=== PATIENT | male | born 1935 | race Caucasian/White ===

== ENCOUNTER 2017-01-11 10:48 | Emergency (ER) | payer MEDICARE ==
--- NOTE | 2017-01-11 12:43 | EDM.PDOC ---
ED HPI GENERAL MEDICAL PROBLEM - General Chief Complaint: Gastrointestinal Problem Stated Complaint: FEEDING TUBE CAME OUT Time Seen by Provider: 01/11/17 11:59 Source of Information: Reports: Patient, Family History Limitations: Reports: No Limitations - History of Present Illness INITIAL COMMENTS - FREE TEXT/NARRATIVE: This gentlemans feeding tube fell out last night. It had been functioning well before that but the balloon deflated. His wonders if maybe his abdomen might be a little bit puffy today.. Patient says he still feeling fine otherwise however - Related Data Allergies Allergy/AdvReac Type Severity Reaction Status Date / Time No Known Allergies Allergy Verified 01/11/17 11:33 Home Meds: Home Meds Calcitriol [Calcitriol] 01/11/17 [History] Finasteride [Finasteride] 5 mg PO DAILY 01/11/17 [History] Hydrocodone/Acetaminophen [Hydrocodon-Acetaminoph 7.5-325] 1 each PO Q4HR PRN [History] Sucralfate [Sucralfate] 1 dose PO QID 01/11/17 [History] Tamsulosin HCl [Tamsulosin HCl] 0.4 mg PO DAILY 01/11/17 [History] Thyroid,Pork [Fulda Thyroid] 15 mg PO DAILY 01/11/17 [History] Past Medical History HEENT History: Reports: Hard of Hearing, Impaired Vision, Other (See Below) Other HEENT History: tumor in throat had radiation Genitourinary History: Reports: Other (See Below) Other Genitourinary History: Metastatic prostrate cancer Musculoskeletal History: Reports: Arthritis Endocrine/Metabolic History: Reports: Hypothyroidism Hematologic History: Reports: Anemia, Blood Transfusion(s) Oncologic (Cancer) 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 radiation Social & Family History - Tobacco Use Smoking Status *Q: Never Smoker - Caffeine Use Caffeine Use: Reports: Coffee - Recreational Drug Use Recreational Drug Use: No ED ROS GENERAL - Review of Systems Review Of Systems: ROS reveals no pertinent complaints other than HPI. ED EXAM, GI/ABD - Physical Exam Exam: See Below Exam Limited By: No Limitations General Appearance: Alert, No Apparent Distress, Thin GI/Abdominal Exam: Other (Abdomen is soft nontender normal bowel sounds. It is not distended. There is a 20 Thai gastrostomy tube that has fallen out and the balloon is deflated. The bladder is not palpable) Extremities: No Pedal Edema Course - Vital Signs Last Recorded V/S: Last Vital Signs Temp 35.6 C 01/11/17 11:13 Pulse 77 01/11/17 11:13 Resp 18 01/11/17 11:13 BP 153/58 H 01/11/17 11:13 Pulse Ox 99 01/11/17 11:13 - Re-Assessments/Exams Free Text/Narrative Re-Assessment/Exam: 01/11/17 12:41 Initially a 20 Thai red rubber catheter was inserted after some lubricating jelly was applied. The catheter went in easily. Some air was injected which while also dictating confirmed at 7 the abdomen a few milliliters of saline were then injected that with well. I a 20 Thai gastrostomy tube was then inserted easily and 10 mL of saline were injected he tolerated that very well. Departure - Departure Time of Disposition: 12:42 Disposition: Home, Self-Care 01 Condition: Fair Clinical Impression: Dislodged gastrostomy tube - Discharge Information Referrals: Darryl Cerna MD [Primary Care Provider] - Additional Instructions: Continued tube feeding as before
== END 2017-01-11 12:59 | disposition home or self-care (01) ==
LOC: JP.ED 10:48
DX: T85.528A Displacement of other gastrointestinal prosthetic devices, implants and grafts, initial encounter (principal); E03.9 Hypothyroidism, unspecified; Z79.899 Other long term (current) drug therapy
CPT/HCPCS: 43760; 99283; 99283-25

== ENCOUNTER 2018-03-13 08:43 | Day surgery (SDC) | payer MEDICARE ==
[2018-03-13] MEDS ORDERED: Lidocaine 2% 20 ML MDV ONE (09:29)
[2018-03-13] MEDS ORDERED: Bupivacaine 0.5% 50 ML MDV ONE (09:29)
[2018-03-13] MEDS ORDERED: fentaNYL 100 MCG/2 ML SDV ONE (09:55)
[2018-03-13] MEDS ORDERED: Propofol 200 MG/20 ML SDV ONE (09:55)
[2018-03-13] MEDS ORDERED: Midazolam 1 MG/ML 2 ML SDV ONE (09:55)
--- NOTE | 2018-03-13 10:42 | MR ---
Foot wo Cont Rt CLINICAL HISTORY: Osteomyelitis TECHNIQUE: Sagittal, coronal, and axial images were obtained through the right foot without IV contrast. This exam was performed on a 1.5 Mary Ann superconducting magnet. FINDINGS: Patient's fifth toe and metatarsal have been amputated. There is moderate to the soft tissue edema in the forefoot most notable around the first through third metatarsals. This is consistent with cellulitis. No abscess is identified. There is poor definition of the first distal phalanx. This may be technical. The some loss of cortical bone cannot be excluded. The second through fourth phalanges are felt to be normal. The there is severe degenerative change in the first MTP joint. There is abnormal signal in the first metatarsal which was also seen on the prior study. The this is increased slightly and may represent metastatic disease patient has a history of prostate carcinoma IMPRESSION: Extensive cellulitis in the forefoot to more prominent in the surrounding the first through third metatarsal region. Poor definition of the first distal phalanx. The involvement with osteomyelitis cannot be excluded First metatarsal lesions have increased in size since the the prior study. This may represent bony metastasis of prostate carcinoma. Fifth toe and metatarsal amputation
[2018-03-13] MEDS ORDERED: Lactated Ringers 1,000 ML IV SCH (11:15)
[2018-03-13] MEDS ORDERED: ceFAZolin 2 GM in Premix Bag 1 BAG IV ONE (11:15)
--- NOTE | 2018-03-13 14:11 | OR ---
DATE OF PROCEDURE: 03/13/2018 BOX ATTACHER: None. PREOPERATIVE DIAGNOSES: Osteomyelitis distal phalanx, left great toe with ulceration, left great toe. POSTOPERATIVE DIAGNOSES: Osteomyelitis distal phalanx, left great toe with ulceration, left great toe. PROCEDURE: Partial amputation, left great toe with bone biopsy, left great toe. ANESTHESIA: Local with IV sedation. HEMOSTASIS: Obtained with an ankle tourniquet on left ankle at 250 mmHg. ESTIMATED BLOOD LOSS: 5 mL. MATERIALS: None. INJECTABLES: 20 mL of 1:1 mixture of lidocaine 2% plain and Marcaine 0.5% plain were used. PATHOLOGY: Aerobic and anaerobic cultures were taken and also bone culture was taken. CONDITION: Stable. INDICATIONS FOR SURGERY: Osteomyelitis, distal phalanx, left great toe with ulceration, left great toe. PROCEDURE IN DETAIL: The patient was brought to the operating room, placed on the operating table in supine position. Following IV sedation, anesthesia was obtained with a total of 20 mL of 1:1 mixture of lidocaine 2% plain, Marcaine 0.5% plain. The left foot was scrubbed, prepped, and draped in the usual aseptic manner raised to 60 degrees for hemostasis and tourniquet was inflated. No Esmarch was used. Foot was lowered to table. Skin incision was made around the left great toe at the level of the interphalangeal joint. Incisions were carried through down to bone. The distal phalanx was disarticulated from the left great toe from the proximal phalanx at the level of the interphalangeal joint. Due to the fact that some of the skin had to be excised in the plantar aspect of the left great toe, we needed to remove the distal portion of the proximal phalanx as well with a sagittal saw in order to facilitate closure. The incision was then flushed out with copious amounts of sterile saline and the incision was closed with 3-0 nylon in a simple interrupted configuration, dressed with Xeroform, 4x4s, Kerlix, and Coban. We did get deep cultures from the portion of the amputated toe. We made an incision along where the ulceration was and took deep cultures, both aerobic and anaerobic, and then took a portion of the bone from the distal phalanx with a rongeur and sent that for tissue culture. The patient was returned to recovery room with vital signs stable and vascular status intact to both feet. The patient was given instructions to rest and elevate the left foot, maintain strict nonweightbearing on the left foot. We wrote orders for meropenem 1 g q.8 h. IV, wrote orders for home health to facilitate this. We also got the patient to consult with Infectious Disease in [place]. Devonte Lockwood DPM /[id number]
[2018-03-13] MEDS ORDERED: Acetaminophen/HYDROcodone 108-2.5 MG/5 ML Soln 15 ML UD Cup PO ONE (15:20)
[2018-03-13] MEDS ORDERED: Sodium Chloride 0.9% 10 ML Syringe FLUSH ONE (15:30)
[2018-03-14] MEDS ORDERED: Sodium Chloride 0.9% 10 ML Syringe FLUSH SCH (08:00)
== END 2018-03-13 16:00 | disposition home or self-care (01) ==
LOC: JP.SDS 08:43
PROVIDERS: ATTEND Podiatrist Foot & Ankle Surgery
DX: M86.172 Other acute osteomyelitis, left ankle and foot (principal); L03.032 Cellulitis of left toe; B95.7 Other staphylococcus as the cause of diseases classified elsewhere; I10 Essential (primary) hypertension; C61 Malignant neoplasm of prostate; C02.9 Malignant neoplasm of tongue, unspecified; C79.51 Secondary malignant neoplasm of bone; D64.9 Anemia, unspecified; C79.9 Secondary malignant neoplasm of unspecified site; Z79.899 Other long term (current) drug therapy; Z79.2 Long term (current) use of antibiotics; Z79.51 Long term (current) use of inhaled steroids
CPT/HCPCS: 28825; 36415; 73718; 87040; 87070; 87075; 87077; 87186; 87205; A9270; J0690; J2185; J2250; J2704; J3010; J3490; J7050; J7120; 88305; 88311

== ENCOUNTER 2018-04-11 14:43 | Emergency (ER) | payer MEDICARE ==
--- NOTE | 2018-04-11 15:58 | EDM.PDOC ---
ED HPI GENERAL MEDICAL PROBLEM - General Chief Complaint: General Stated Complaint: CHEST CONGESTION Time Seen by Provider: 04/11/18 15:47 Source of Information: Reports: Patient, Old Records, Provider, RN Notes Reviewed History Limitations: Reports: No Limitations - History of Present Illness INITIAL COMMENTS - FREE TEXT/NARRATIVE: 82-year-old gentleman presents to the emergency department today sent over from clinic for further evaluation was found to be hypoxic in clinic he has a known history of prostate cancer as well as immunosuppression does get biweekly blood transfusions., He has no new complaints he is interested in following up his no pneumonia which she is taking antibiotics for and he is planning on a blood transfusion tomorrow or Monday depending on availability of blood O Ahmed Foot Pain Score (Numeric/FACES): 3 - Related Data Allergies Allergy/AdvReac Type Severity Reaction Status Date / Time No Known Allergies Allergy Verified 04/11/18 15:39 Home Meds: Home Meds Acetaminophen [Tylenol Extra Strength] 1,000 mg PO Q6HR PRN MDD 4000mg 04/11/17 [History] Finasteride 5 mg PO DAILY 04/11/17 [History] Fluticasone Propionate [Flonase Allergy Relief] 2 spray LISSA DAILY 04/11/17 [ History] Furosemide 20 mg PO DAILY 04/11/17 [History] Multivitamins [Tab-A-Crescencio] 1 each PO DAILY 04/11/17 [History] Ondansetron [Ondansetron ODT] 8 mg PO DAILY 04/11/17 [History] Phosphorus #1 [Virt-Phos 250 Neutral Tablet] 250 mg PO QID 04/11/17 [History] Tamsulosin HCl 0.4 mg PO BID 04/11/17 [History] Abiraterone Acetate [Zytiga] 1 tab PO BID 12/25/17 [History] Calcium Vitamin A 1 tab PO DAILY 12/25/17 [History] Vitamin B Complex [B Complex] 1 each PO DAILY 12/25/17 [History] predniSONE [Prednisone] 5 mg PO BID 12/25/17 [History] Levothyroxine 25 mcg PO ACBREAKFAST 01/01/18 [History] Gabapentin 300 mg PO BID #360 ml 01/05/18 [Rx] oxyCODONE 10 mg GTUBE Q4H PRN #30 tablet 11/09/18 [Rx] HYDROcodone Bitartrate [Zohydro ER] 5 ml GTUBE ONETIME 03/13/18 [History] Past Medical History HEENT History: Reports: Hard of Hearing, Impaired Vision, Other (See Below) Other HEENT History: tumor in throat had radiation Cardiovascular History: Reports: Other (See Below) Other Cardiovascular History: right bundle branch block had all his life. Gastrointestinal History: Reports: None Genitourinary History: Reports: Other (See Below) Other Genitourinary History: Metastatic prostrate cancer Musculoskeletal History: Reports: Osteoarthritis Neurological History: Reports: Other (See Below) Other Neuro History: POOR BALANCE PER PT Psychiatric History: Reports: Depression Endocrine/Metabolic History: Reports: Hypothyroidism Hematologic History: Reports: Anemia, Blood Transfusion(s) Oncologic (Cancer) History: Reports: Prostate Dermatologic History: Reports: Cellulitis Other Dermatologic History: wound to right 5th digit 12/25/17, wound on left great toe - Infectious Disease History Infectious Disease History: Reports: Chicken Pox - Past Surgical History HEENT Surgical History: Reports: Oral Surgery GI Surgical History: Reports: Colonoscopy, Other (See Below) Other GI Surgeries/Procedures: Feeding tube Musculoskeletal Surgical History: Reports: Other (See Below) Other Musculoskeletal Surgeries/Procedures:: total right ankle replacement Other Oncologic Surgeries/Procedures: Lupron. radiation Dermatological Surgical History: Reports: Other (See Below) Social & Family History - Family History Family Medical History: Noncontributory - Tobacco Use Smoking Status *Q: Never Smoker - Caffeine Use Caffeine Use: Reports: None - Recreational Drug Use Recreational Drug Use: No ED ROS GENERAL - Review of Systems Review Of Systems: See Below Constitutional: Reports: No Symptoms Respiratory: Reports: Cough (The) Cardiovascular: Reports: No Symptoms GI/Abdominal: Reports: No Symptoms ED EXAM, GENERAL - Physical Exam Exam: See Below Exam Limited By: No Limitations General Appearance: Alert, WD/WN, No Apparent Distress Respiratory/Chest: No Respiratory Distress, Lungs Clear, Normal Breath Sounds, No Accessory Muscle Use Cardiovascular: Regular Rate, Rhythm, No Murmur Course - Vital Signs Last Recorded V/S: Last Vital Signs Temp 95.8 F 04/11/18 15:37 Pulse 54 L 04/11/18 15:37 Resp 11 L 04/11/18 15:37 BP 135/55 L 04/11/18 15:37 Pulse Ox 94 L 04/11/18 15:37 Departure - Departure Time of Disposition: 17:19 Disposition: Home, Self-Care 01 Condition: Poor Clinical Impression: Prostate cancer metastatic to bone Community acquired pneumonia Qualifiers: Laterality: left Lung location: lower lobe of lung Qualified Code(s): J18.1 - Lobar pneumonia, unspecified organism - Discharge Information Referrals: Arnulfo Roman MD [Primary Care Provider] - Forms: ED Department Discharge Additional Instructions: Please report for your blood transfusion Monday at 9 AM at the infusion center - Assessment/Plan Plan: Assessment Acuity = acute on chronic Site and laterality = prostate cancer with metastases as well as ongoing community-acquired pneumonia on antibiotics with chronic anemia secondary to metastatic disease Etiology = bacterial infection pneumonia Manifestations = chest congestion Location of injury = Home Lab values = he did not become hypoxic while in the emergency department, blood was drawn for his antibody hemoglobin Plan Plan for transfusion 9:00 Monday morning, continue with antibiotics constitution party initiated This note was dictated using [employer] voice recognition software please call with any questions on syntax or grammar.
--- NOTE | 2018-04-11 16:58 | CRLCR ---
Indication: Pneumonia Technique: Chest 1 view Comparison: Chest CT January 16, 2018 Findings/Impression: Normal cardiac size. New patchy opacity at the left lung base may reflect atelectasis or infection. Small left pleural effusion. No pneumothorax. Left-sided PICC tip terminates at the level of the cavoatrial junction. Increased density throughout the osseous structures may represent diffuse metastatic disease. Dictated by Sandra Oropeza MD @ Apr 11 2018 4:56PM Signed by Dr. Sandra Oropeza @ Apr 11 2018 4:58PM
== END 2018-04-11 17:29 | disposition home or self-care (01) ==
LOC: JP.ED 14:43
DX: J18.1 Lobar pneumonia, unspecified organism (principal); C61 Malignant neoplasm of prostate; C79.51 Secondary malignant neoplasm of bone; E03.9 Hypothyroidism, unspecified; Z79.899 Other long term (current) drug therapy
CPT/HCPCS: 71045; 99285

== ENCOUNTER 2018-04-13 17:13 | Emergency (ER) | payer MEDICARE ==
--- NOTE | 2018-04-13 17:58 | EDM.PDOC ---
ED HPI GENERAL MEDICAL PROBLEM - General Chief Complaint: General Stated Complaint: MEDICAL Time Seen by Provider: 04/13/18 17:40 Source of Information: Reports: Patient, Family, Old Records, RN History Limitations: Reports: No Limitations - History of Present Illness INITIAL COMMENTS - FREE TEXT/NARRATIVE: 82 yo male with multiple medical problems including metastatic prostate CA to bone, chronic anemia requiring transfusions, osteomyelitis of the R foot and ? recent pneumonia was sent to the ER for screening for admission until he can be admitted to a [facility] or assisted living facility. Patient just finished his most recent blood transfusion just before coming to the ER and now says he feels much better and would like to go home. Onset: Gradual Duration: Chronic, Waxing/Waning Location: Reports: Generalized Quality: Reports: Other (no new pain) Severity: Moderate (weakness) Improves with: Reports: Other (transfusion) Worsens with: Reports: Other (anemia) Context: Reports: Other (anemia of chronic disease.) Associated Symptoms: Reports: Shortness of Breath (with exertion), Weakness. Denies: Fever/Chills Treatments OFFICE AUTOMATION TECHNICIAN: Reports: Other (see below) (transfusion) - Related Data Allergies Allergy/AdvReac Type Severity Reaction Status Date / Time No Known Allergies Allergy Verified 04/13/18 17:34 Home Meds: Home Meds Acetaminophen [Tylenol Extra Strength] 1,000 mg PO Q6HR PRN MDD 4000mg 04/11/17 [History] Finasteride 5 mg PO DAILY 04/11/17 [History] Fluticasone Propionate [Flonase Allergy Relief] 2 spray LISSA DAILY 04/11/17 [ History] Furosemide 20 mg PO DAILY 04/11/17 [History] Multivitamins [Tab-A-Crescencio] 1 each PO DAILY 04/11/17 [History] Ondansetron [Ondansetron ODT] 8 mg PO DAILY 04/11/17 [History] Phosphorus #1 [Virt-Phos 250 Neutral Tablet] 250 mg PO QID 04/11/17 [History] Tamsulosin HCl 0.4 mg PO BID 04/11/17 [History] Abiraterone Acetate [Zytiga] 1 tab PO BID 12/25/17 [History] Calcium Vitamin A 1 tab PO DAILY 12/25/17 [History] Vitamin B Complex [B Complex] 1 each PO DAILY 12/25/17 [History] Levothyroxine 25 mcg PO ACBREAKFAST 01/01/18 [History] Gabapentin 300 mg PO BID #360 ml 01/05/18 [Rx] oxyCODONE 10 mg GTUBE Q4H PRN #30 tablet 01/05/18 [Rx] HYDROcodone Bitartrate [Zohydro ER] 5 ml GTUBE ONETIME 03/13/18 [History] Carvedilol [Coreg] 12.5 mg PO BID 04/13/18 [History] Past Medical History HEENT History: Reports: Hard of Hearing, Impaired Vision, Other (See Below) Other HEENT History: tumor in throat had radiation Cardiovascular History: Reports: Other (See Below) Other Cardiovascular History: right bundle branch block had all his life. Respiratory History: Reports: Pneumonia, Recurrent Gastrointestinal History: Reports: None Genitourinary History: Reports: Other (See Below) Other Genitourinary History: Metastatic prostrate cancer Musculoskeletal History: Reports: Osteoarthritis Neurological History: Reports: Other (See Below) Other Neuro History: POOR BALANCE PER PT Psychiatric History: Reports: Depression Endocrine/Metabolic History: Reports: Hypothyroidism Hematologic History: Reports: Anemia, Blood Transfusion(s) Oncologic (Cancer) History: Reports: Prostate Dermatologic History: Reports: Cellulitis Other Dermatologic History: wound to right 5th digit 12/25/17, wound on left great toe - Infectious Disease History Infectious Disease History: Reports: Scarlet Fever - Past Surgical History HEENT Surgical History: Reports: Oral Surgery GI Surgical History: Reports: Colonoscopy, Other (See Below) Other GI Surgeries/Procedures: Feeding tube Musculoskeletal Surgical History: Reports: Other (See Below) Other Musculoskeletal Surgeries/Procedures:: total right ankle replacement Other Oncologic Surgeries/Procedures: Lupron. radiation Dermatological Surgical History: Reports: Other (See Below) Social & Family History - Family History Family Medical History: Noncontributory - Tobacco Use Smoking Status *Q: Never Smoker - Caffeine Use Caffeine Use: Reports: None ED ROS GENERAL - Review of Systems Review Of Systems: See Below Constitutional: Reports: Weakness HEENT: Reports: No Symptoms Respiratory: Reports: Shortness of Breath (with exertion). Denies: Wheezing, Cough, Sputum, Hemoptysis Cardiovascular: Reports: Dyspnea on Exertion Endocrine: Reports: No Symptoms GI/Abdominal: Reports: Other (gets roughly 90% of his calories via feeding tube) . Denies: Abdominal Pain, Anorexia, Black Stool, Bloody Stool, Constipation, Diarrhea, Decreased Appetite, Distension, Flatus, Hematemesis, Hematochezia, Nausea, Vomiting : Reports: No Symptoms Musculoskeletal: Reports: No Symptoms Skin: Reports: No Symptoms Neurological: Reports: No Symptoms Psychiatric: Reports: No Symptoms ED EXAM, GENERAL - Physical Exam Exam: See Below Exam Limited By: No Limitations General Appearance: Alert, WD/WN, No Apparent Distress, Thin Eye Exam: Bilateral Eye: Normal Inspection Ears: Normal External Exam, Normal Canal, Hearing Loss Ear Exam: Bilateral Ear: Auricle Normal, Canal Normal Nose: Normal Inspection, No Blood Throat/Mouth: Normal Inspection, Normal Lips, Normal Oropharynx, Normal Voice, No Airway Compromise Head: Atraumatic, Normocephalic Neck: Normal Inspection Respiratory/Chest: No Respiratory Distress, Rhonchi (scattered). No: Wheezing Cardiovascular: Regular Rate, Rhythm, No Edema GI/Abdominal: Normal Bowel Sounds, Soft, Non-Tender, No Distention, Other ( feeding tube present) (Male) Exam: Normal Inspection Back Exam: Normal Inspection. No: CVA Tenderness (R), CVA Tenderness (L) Extremities: Normal Inspection, Normal Range of Motion, Non-Tender Neurological: Alert, Oriented, CN II-XII Intact, Normal Cognition, No Motor/ Sensory Deficits Psychiatric: Normal Affect, Normal Mood Skin Exam: Warm, Dry, Intact, Normal Color, No Rash Course - Vital Signs Text/Narrative:: labs reviewed today. Patient able to get about with a walker here in the ER sufficiently well that his is Ok with taking him home. Last Recorded V/S: Last Vital Signs Temp 36.6 C 04/13/18 17:39 Pulse 72 04/13/18 17:39 Resp 14 04/13/18 17:39 BP 159/67 H 04/13/18 17:39 Pulse Ox 92 L 04/13/18 17:39 - Orders/Labs/Meds Labs: Laboratory Tests 04/13/18 04/13/18 04/13/18 Range/Units 17:40 17:40 17:53 WBC 9.1 (4.5-11.0) K/uL RBC 3.22 L (4.30-5.90) M/uL Hgb 9.8 L (12.0-15.0) g/dL Hct 31.2 L (40.0-54.0) % MCV 97 (80-98) fL MCH 30 (27-31) pg MCHC 31 L (32-36) % Plt Count 266 (150-400) K/uL Sodium 138 L (140-148) mmol/L Potassium 3.7 (3.6-5.2) mmol/L Chloride 99 L (100-108) mmol/L Carbon Dioxide 32 (21-32) mmol/L Anion Gap 10.7 (5.0-14.0) mmol/L BUN 23 H (7-18) mg/dL Creatinine 1.0 (0.8-1.3) mg/dL Est Cr Clr Drug Dosing 44.10 mL/min Estimated GFR (MDRD) > 60 (>60) Glucose 122 H (74-106) mg/dL Calcium 8.5 (8.5-10.1) mg/dL Urine Color Yellow Urine Appearance Clear Urine pH 7.0 (4.5-8.0) Ur Specific Dearing 1.005 L (1.008-1.030) Urine Protein Trace (NEGATIVE) mg/dL Urine Glucose (UA) Normal (NEGATIVE) mg/dL Urine Ketones Negative (NEGATIVE) mg/dL Urine Occult Blood Moderate (NEGATIVE) Urine Nitrite Negative (NEGAITVE) Urine Bilirubin Negative (NEGATIVE) Urine Urobilinogen Normal (NORMAL) mg/dL Ur Leukocyte Esterase Negative (NEGATIVE) Urine RBC 0-5 (0-5) Urine WBC Not seen (0-5) Ur Epithelial Cells Not seen Amorphous Sediment Not seen Urine Bacteria Rare Urine Mucus Not seen Departure - Departure Time of Disposition: 18:40 Disposition: Home, Self-Care 01 Condition: Fair Clinical Impression: Weakness, Anemia of chronic disease - Discharge Information *PRESCRIPTION DRUG MONITORING PROGRAM REVIEWED*: No *COPY OF PRESCRIPTION DRUG MONITORING REPORT IN PATIENT GALILEA: No Instructions: Weakness Referrals: PCP,None [Primary Care Provider] - Forms: ED Department Discharge Additional Instructions: Be as active as you can be to build up your strength. Touch bases with your provider next Monday morning to let him know how the weekend went and to make a plan for going forward. Return as needed.
== END 2018-04-13 19:53 | disposition home or self-care (01) ==
LOC: JP.ED 17:13
DX: R53.1 Weakness (principal); E03.9 Hypothyroidism, unspecified; D64.9 Anemia, unspecified; F32.9 Major depressive disorder, single episode, unspecified; Z79.899 Other long term (current) drug therapy
CPT/HCPCS: 36415; 36430; 80048; 81001; 85027; 86850; 86870; 86900; 86901; 86902; 86920; 86922; 99283; 99285; A9270-GY; J1940; J7030; P9016

== ENCOUNTER 2018-04-23 19:41 | Emergency (ER) | payer MEDICARE ==
[2018-04-23] MEDS ORDERED: Lactated Ringers 1,000 ML IV SCH (21:15)
--- NOTE | 2018-04-23 21:19 | EDM.PDOC ---
ED HPI GENERAL MEDICAL PROBLEM - General Chief Complaint: Fever Stated Complaint: PNEUMONIA Time Seen by Provider: 04/23/18 20:55 Source of Information: Reports: Patient, Family, Old Records, RN Notes Reviewed History Limitations: Reports: No Limitations - History of Present Illness INITIAL COMMENTS - FREE TEXT/NARRATIVE: 82-year-old gentleman presents emergency department day complaint of weakness and fever, he has a known history of prostate cancer with metastases as well as osteomyelitis and multiple lower extremity digit amputations., He states had fever for about 3 days it is controlled with Tylenol has progressively gotten more week he also receives recurrent blood transfusions - Related Data Allergies Allergy/AdvReac Type Severity Reaction Status Date / Time No Known Allergies Allergy Verified 04/23/18 20:08 Home Meds: Home Meds Finasteride 5 mg PO DAILY 04/11/17 [History] Fluticasone Propionate [Flonase Allergy Relief] 2 spray LISSA DAILY 04/11/17 [ History] Furosemide 20 mg PO DAILY 04/11/17 [History] Multivitamins [Tab-A-Crescencio] 1 each PO DAILY 04/11/17 [History] Ondansetron [Ondansetron ODT] 8 mg PO DAILY 04/11/17 [History] Phosphorus #1 [Virt-Phos 250 Neutral Tablet] 250 mg PO BID 04/11/17 [History] Tamsulosin HCl 0.4 mg PO BID 04/11/17 [History] Vitamin B Complex [B Complex] 1 each PO DAILY 12/25/17 [History] Levothyroxine 25 mcg PO ACBREAKFAST 01/01/18 [History] Gabapentin 300 mg PO BID #360 ml 01/05/18 [Rx] Carvedilol [Coreg] 3 tab GTUBE BID 04/13/18 [History] Acetaminophen/Diphenhydramine [Tylenol Pm Ex-Strength Caplet] 1 - 3 tab PO BEDTIME 04/23/18 [History] Doxycycline Monohydrate 100 mg PO Q12H 04/23/18 [History] metroNIDAZOLE [Flagyl] 500 mg PO TID 04/23/18 [History] oxyCODONE 10 mg GTUBE Q8H PRN 04/23/18 [History] Past Medical History HEENT History: Reports: Hard of Hearing, Impaired Vision, Other (See Below) Other HEENT History: tumor in throat had radiation Cardiovascular History: Reports: Hypertension, Other (See Below) Other Cardiovascular History: right bundle branch block had all his life. Respiratory History: Reports: Pneumonia, Recurrent Gastrointestinal History: Reports: None, GERD Genitourinary History: Reports: Prostate Disorder, UTI, Recurrent, Other (See Below) Other Genitourinary History: Metastatic prostrate cancer Musculoskeletal History: Reports: Osteoarthritis Neurological History: Reports: Other (See Below) Other Neuro History: POOR BALANCE PER PT Psychiatric History: Reports: Depression Endocrine/Metabolic History: Reports: Hypothyroidism Hematologic History: Reports: Anemia, Blood Transfusion(s) Oncologic (Cancer) History: Reports: Prostate Dermatologic History: Reports: Cellulitis Other Dermatologic History: wound to right 5th digit 12/25/17, wound on left great toe - Infectious Disease History Infectious Disease History: Reports: Scarlet Fever - Past Surgical History HEENT Surgical History: Reports: Oral Surgery GI Surgical History: Reports: Colonoscopy, Other (See Below) Other GI Surgeries/Procedures: Feeding tube Male Surgical History: Reports: Prostate Biopsy Musculoskeletal Surgical History: Reports: Other (See Below) Other Musculoskeletal Surgeries/Procedures:: total right ankle replacement. right 5 digit and left great toe amputated, Dermatological Surgical History: Reports: Other (See Below) Social & Family History - Family History Family Medical History: Noncontributory - Tobacco Use Smoking Status *Q: Never Smoker - Caffeine Use Caffeine Use: Reports: None - Recreational Drug Use Recreational Drug Use: No ED ROS GENERAL - Review of Systems Review Of Systems: See Below Constitutional: Reports: Fever, Chills HEENT: Reports: No Symptoms Respiratory: Reports: Shortness of Breath, Cough, Sputum Cardiovascular: Reports: No Symptoms GI/Abdominal: Reports: No Symptoms Musculoskeletal: Reports: No Symptoms Skin: Reports: Wound Neurological: Reports: No Symptoms ED EXAM, GENERAL - Physical Exam Exam: See Below Free Text/Narrative:: General: Male, not in any distress, alert and oriented x3 HEENT: head is atraumatic normocephalic, eyes pupils equal round reactive to light, sclera clear no conjunctivitis appreciated. Ears tympanic membranes clear and min landmarks and light reflex are present bilaterally canals are clear. Nose no septal deviation, nares are clear, no blood present. Mouth mucosa is moist and pink no erythema or exudate noted in soft palate, tongue is midline uvula is midline, dentition is poor. Neck: Supple no thyromegaly no tracheal deviation. Nodes: Cervical nodes subclavicular nodes nontender no palpable lymphadenopathy noted. Lungs: clear to auscultation bilaterally with symmetrical respirations, no adventitious noise appreciated. CV: Regular rate and rhythm S1 and S2 appreciated no murmurs rubs or gallops noted. Abdomen: Soft, nontender, no palpable masses or organomegaly appreciated, no distention no guarding bowel sounds are present, . Neuro: GCS 15, cranial nerves II through XII intact Skin: Warm and dry, intact Extremities: No lower extremity edema appreciated, multiple digit amputations with wounds in various healing stages appreciated and lower extremities Course - Vital Signs Last Recorded V/S: Last Vital Signs Temp 97.3 F 04/23/18 23:55 Pulse 66 04/23/18 23:55 Resp 17 04/23/18 23:55 BP 132/51 L 04/23/18 23:55 Pulse Ox 91 L 04/23/18 23:55 - Orders/Labs/Meds Orders: Active Orders 24 hr Category Date Time Status Vital Signs [RC] Q1H Care 04/23/18 21:12 Active CULTURE BLOOD [BC] Urgent Lab 04/23/18 21:30 Received CULTURE BLOOD [BC] Urgent Lab 04/23/18 21:40 Received Lactated Ringers [Ringers, Lactated] 1,000 ml Med 04/23/18 21:15 Active IV ASDIRECTED Levofloxacin/Dextrose 5%-Water [Levaquin in D5W 750 MG/ Med 04/23/18 23:45 Ordered 150 ML] 750 mg Premix Bag 1 bag IV Q24H Blood Culture x2 Reflex Set [OM.PC] Urgent Oth 04/23/18 21:12 Ordered Medication Orders Lactated Ringer's (Ringers, Lactated) 1,000 mls @ 500 mls/hr IV ASDIRECTED KATRINA Last Admin: 04/23/18 21:26 Dose: 500 mls/hr Levofloxacin/Dextrose 750 mg/ (Premix) 150 mls @ 100 mls/hr IV Q24H KATRINA Last Admin: 04/24/18 00:03 Dose: 100 mls/hr Labs: Laboratory Tests 04/23/18 04/23/18 04/23/18 Range/Units 21:30 21:30 21:30 WBC 8.9 (4.5-11.0) K/uL RBC 2.99 L (4.30-5.90) M/uL Hgb 9.0 L (12.0-15.0) g/dL Hct 28.4 L (40.0-54.0) % MCV 95 (80-98) fL MCH 30 (27-31) pg MCHC 32 (32-36) % Plt Count 196 (150-400) K/uL Neut % (Auto) 72 H (36-66) % Lymph % (Auto) 11 L (24-44) % Gray % (Auto) 15 H (2-6) % Eos % (Auto) 2 (2-4) % Baso % (Auto) 0 (0-1) % Sodium 122 L (140-148) mmol/L Potassium 4.0 (3.6-5.2) mmol/L Chloride 85 L (100-108) mmol/L Carbon Dioxide 30 (21-32) mmol/L Anion Gap 11.0 (5.0-14.0) mmol/L BUN 33 H (7-18) mg/dL Creatinine 1.0 (0.8-1.3) mg/dL Est Cr Clr Drug Dosing 44.10 mL/min Estimated GFR (MDRD) > 60 (>60) Glucose 126 H (74-106) mg/dL Lactic Acid 1.0 (0.4-2.0) mmol/L Calcium 8.7 (8.5-10.1) mg/dL Total Bilirubin 0.4 (0.2-1.0) mg/dL AST 47 H D (15-37) U/L ALT 15 (12-78) U/L Alkaline Phosphatase 473 H (46-116) U/L C-Reactive Protein 13.71 H (0.0-0.3) mg/dL Total Protein 5.9 L (6.4-8.2) g/dL Albumin 2.5 L (3.4-5.0) g/dL Globulin 3.4 (2.3-3.5) g/dL Albumin/Globulin Ratio 0.7 L (1.2-2.2) Urine Color Urine Appearance Urine pH (4.5-8.0) Ur Specific [place] (1.008-1.030) Urine Protein (NEGATIVE) mg/dL Urine Glucose (UA) (NEGATIVE) mg/dL Urine Ketones (NEGATIVE) mg/dL Urine Occult Blood (NEGATIVE) Urine Nitrite (NEGAITVE) Urine Bilirubin (NEGATIVE) Urine Urobilinogen (NORMAL) mg/dL Ur Leukocyte Esterase (NEGATIVE) Urine RBC (0-5) Urine WBC (0-5) Ur Epithelial Cells Amorphous Sediment Urine Bacteria Urine Mucus 04/23/18 Range/Units 21:32 WBC (4.5-11.0) K/uL RBC (4.30-5.90) M/uL Hgb (12.0-15.0) g/dL Hct (40.0-54.0) % MCV (80-98) fL MCH (27-31) pg MCHC (32-36) % Plt Count (150-400) K/uL Neut % (Auto) (36-66) % Lymph % (Auto) (24-44) % Gray % (Auto) (2-6) % Eos % (Auto) (2-4) % Baso % (Auto) (0-1) % Sodium (140-148) mmol/L Potassium (3.6-5.2) mmol/L Chloride (100-108) mmol/L Carbon Dioxide (21-32) mmol/L Anion Gap (5.0-14.0) mmol/L BUN (7-18) mg/dL Creatinine (0.8-1.3) mg/dL Est Cr Clr Drug Dosing mL/min Estimated GFR (MDRD) (>60) Glucose (74-106) mg/dL Lactic Acid (0.4-2.0) mmol/L Calcium (8.5-10.1) mg/dL Total Bilirubin (0.2-1.0) mg/dL AST (15-37) U/L ALT (12-78) U/L Alkaline Phosphatase (46-116) U/L C-Reactive Protein (0.0-0.3) mg/dL Total Protein (6.4-8.2) g/dL Albumin (3.4-5.0) g/dL Globulin (2.3-3.5) g/dL Albumin/Globulin Ratio (1.2-2.2) Urine Color Yellow Urine Appearance Clear Urine pH 7.0 (4.5-8.0) Ur Specific [place] 1.010 (1.008-1.030) Urine Protein 30 H (NEGATIVE) mg/dL Urine Glucose (UA) Normal (NEGATIVE) mg/dL Urine Ketones Negative (NEGATIVE) mg/dL Urine Occult Blood Trace (NEGATIVE) Urine Nitrite Negative (NEGAITVE) Urine Bilirubin Negative (NEGATIVE) Urine Urobilinogen Normal (NORMAL) mg/dL Ur Leukocyte Esterase Negative (NEGATIVE) Urine RBC 5-10 H (0-5) Urine WBC 0-5 (0-5) Ur Epithelial Cells Rare Amorphous Sediment Not seen Urine Bacteria Rare Urine Mucus Not seen Meds: Medications Generic Name Dose Route Start Last Admin Trade Name Freq PRN Reason Stop Dose Admin Lactated Ringer's 1,000 mls @ 500 mls/hr 04/23/18 21:15 04/23/18 21:26 Ringers, Lactated IV 500 mls/hr ASDIRECTED KATRINA Administration Levofloxacin/Dextrose 750 mg/ 150 mls @ 100 mls/hr 04/23/18 23:45 04/24/18 00 :03 Premix IV 100 mls/hr Q24H KATRINA Administration Departure - Departure Time of Disposition: 00:13 Disposition: DC/Tfer to Acute Hospital 02 Condition: Poor Clinical Impression: Community acquired pneumonia Qualifiers: Laterality: left Lung location: lower lobe of lung Qualified Code(s): J18.1 - Lobar pneumonia, unspecified organism Osteomyelitis of right foot Qualifiers: Osteomyelitis type: subacute Qualified Code(s): M86.271 - Subacute osteomyelitis, right ankle and foot - Discharge Information Referrals: Arnulfo Roman MD [Primary Care Provider] - Forms: ED Department Discharge - My Orders Last 24 Hours: My Active Orders 04/23/18 21:12 Vital Signs [RC] Q1H Blood Culture x2 Reflex Set [OM.PC] Urgent 04/23/18 21:15 Lactated Ringers [Ringers, Lactated] 1,000 ml IV ASDIRECTED 04/23/18 21:30 CULTURE BLOOD [BC] Urgent 04/23/18 21:40 CULTURE BLOOD [BC] Urgent 04/23/18 23:45 Levofloxacin/Dextrose 5%-Water [Levaquin in D5W 750 MG/150 ML] 750 mg Premix Bag 1 bag IV Q24H - Assessment/Plan Last 24 Hours: My Active Orders 04/23/18 21:12 Vital Signs [RC] Q1H Blood Culture x2 Reflex Set [OM.PC] Urgent 04/23/18 21:15 Lactated Ringers [Ringers, Lactated] 1,000 ml IV ASDIRECTED 04/23/18 21:30 CULTURE BLOOD [BC] Urgent 04/23/18 21:40 CULTURE BLOOD [BC] Urgent 04/23/18 23:45 Levofloxacin/Dextrose 5%-Water [Levaquin in D5W 750 MG/150 ML] 750 mg Premix Bag 1 bag IV Q24H Plan: Assessment Acuity = acute Site and laterality = community-acquired pneumonia complicated patient with known history of prostate cancer with metastases as well as chronic osteomyelitis bilateral lower extremities Etiology = unclear etiology Manifestations = cough and fever Location of injury = Home Lab values = influenza A and B were negative, CBC reveals hemoglobin 9.0 consistent normochromic anemia, sodium low at 122 consistent hyponatremia lactic acid normal 1.0 CRP elevated at 13 urinalysis reveals 5-10 rbc's consists with hematuria chest x-ray suggestive of early pneumonia compared to prior Plan Called discussed case with Dr. Martínez hospitalist personnel and payroll technician at [facility] at 1205 he kindly accepted the patient in transport, will be transported via EMS ground, antibiotics of Levaquin initiated 750 mg blood cultures are pending This note was dictated using [employer] voice recognition software please call with any questions on syntax or grammar.
--- NOTE | 2018-04-23 22:57 | CRLCR ---
INDICATION: Cough TECHNIQUE: Chest 2 views COMPARISON: Chest x-ray 04/11/2018 FINDINGS: Cardiovascular and mediastinum: Heart size and vasculature are normal in caliber and appearance. Left-sided peripheral catheter extends to the distal superior vena cava. Lungs and pleural spaces: Trace left pleural effusion with bilateral airspace disease, greatest within the left lung base. Trace right pleural effusion. Bones and soft tissues: Patchy, heterogeneous density of the lungs. IMPRESSION: Small left and trace right pleural effusion with bilateral airspace disease suggestive of pneumonia. Compared to the prior examination this has mildly worsened. Dictated by Ck Stewart MD @ Apr 23 2018 10:53PM Signed by Dr. Ck Stewart @ Apr 23 2018 10:55PM
[2018-04-23] MEDS ORDERED: Levofloxacin/Dextrose 5%-Water 750 MG in Premix Bag 1 BAG IV SCH (23:45)
== END 2018-04-24 01:13 ==
LOC: JP.ED 19:41
DX: J18.1 Lobar pneumonia, unspecified organism (principal); M86.271 Subacute osteomyelitis, right ankle and foot; I10 Essential (primary) hypertension; K21.9 Gastro-esophageal reflux disease without esophagitis; E03.9 Hypothyroidism, unspecified; Z79.899 Other long term (current) drug therapy
CPT/HCPCS: 36415; 71046; 80053; 81001; 83605; 85025; 86140; 87040; 87804; 96361; 96365; 99285; J1956; J7120